=== PATIENT | male | born 1985 | race Caucasian/White ===

== ENCOUNTER 2018-04-30 10:12 | Emergency (ER) | payer OTHER ==
[~2018-04-30] VITALS: Ht 180.3 cm; Wt 70.8 kg
[2018-04-30 10:15] VITALS: BP_SYST 129
[2018-04-30] MEDS ORDERED: LIDOCAINE 1% 10 MG/ML, 20 ML MDV IJ ONE (11:15)
[2018-04-30] MEDS ORDERED: BACITRACIN 1 GM OINT TP ONE (11:15)
[2018-04-30] MEDS ORDERED: ACETAMINOPHEN 325 MG TABLET PO ONE (13:30)
[2018-04-30 13:55] VITALS: BP_SYST 129
== END 2018-04-30 13:55 | disposition home or self-care (01) ==
LOC: SED 10:12
DX: S61.224A Laceration with foreign body of right ring finger without damage to nail, initial encounter (principal); W31.2XXA Contact with powered woodworking and forming machines, initial encounter; Y93.89 Activity, other specified; Y92.89 Other specified places as the place of occurrence of the external cause; Y99.8 Other external cause status
CPT/HCPCS: 12042; 73140; 99284; J2001